=== PATIENT | female | born 1940 | race Caucasian/White ===

== ENCOUNTER 2021-11-14 20:52 | Emergency (ER) | payer MEDICARE | END 2021-11-14 22:25 | disposition home or self-care (01) | LOC: FER 20:52 | DX: S00.01XA Abrasion of scalp, initial encounter (principal); S09.90XA Unspecified injury of head, initial encounter; I10 Essential (primary) hypertension; Z86.73 Personal history of transient ischemic attack (TIA), and cerebral infarction without residual deficits; Z88.0 Allergy status to penicillin; Z88.2 Allergy status to sulfonamides; Z79.01 Long term (current) use of anticoagulants; Z79.02 Long term (current) use of antithrombotics/antiplatelets; Z79.899 Other long term (current) drug therapy; W19.XXXA Unspecified fall, initial encounter | CPT/HCPCS: 70450; 72125; 90471; 90715 ==